=== PATIENT | female | born 1945 | race Caucasian/White ===

== ENCOUNTER 2018-01-15 12:08 | Emergency (ER) | payer MEDICARE, OTHER ==
[2018-01-15] MEDS ORDERED: Lidocaine 2% EPI 1:200000 MPF*10-20 ML VIAL ONE (12:59)
--- NOTE | 2018-01-15 13:05 | RAD ---
HISTORY: Left knee pain, fall COMPARISONS: None VIEWS: 2, Frontal and lateral views of the left knee FINDINGS: BONE DENSITY: Normal. BONES: There is no displaced fracture. JOINTS: There is no arthropathy. There is no suprapatellar joint effusion or lipohemarthrosis. ALIGNMENT: There is no dislocation. SOFT TISSUES: There is soft tissue irregularity consistent with the history of laceration. OTHER FINDINGS: None. IMPRESSION: NO ACUTE OSSEOUS INJURY. IF SYMPTOMS PERSIST, RECOMMEND REPEAT IMAGING.
[2018-01-15] MEDS ORDERED: Acetaminophen TAB* 325 MG ONE (13:06)
[2018-01-15] MEDS ORDERED: Acetaminophen TAB* 325 MG PO ONE (13:08)
[2018-01-15] MEDS ORDERED: Lidocaine 2% EPI 1:200000 MPF*10-20 ML VIAL INJ ONE (13:08)
[2018-01-15 16:15] VITALS: BP 126/74
--- NOTE | 2018-01-16 08:26 | ED ---
Laceration/Wound HPI - HPI Summary HPI Summary: Patient is a 72-year-old female presenting to the ED with a large laceration to the left knee. She states she fell on a cement step walking upstairs. Denies any pain to the knee. She takes Xarelto daily. She denies hitting her head and denies LOC. She denies any pain, including back pain, headache. Denies any dizziness. The fall was mechanical. She is at her baseline and family is at bedside confirming such. Bleeding is not well controlled on arrival and family states during the drive here she soaked through 3 towels. - History of Current Complaint Stated Complaint: LT KNEE LAC Time Seen by Provider: 01/15/18 12:17 Hx Obtained From: Patient Mechanism of Injury: Sharp/Blunt Trauma Onset/Duration: Sudden Onset Aggravating: Movement Alleviating: Compression Timing: Constant Onset Severity: Mild Current Severity: Mild Pain Intensity: 0 Pain Scale Used: 0-10 Numeric Related Hx: Anticoagulat Use - Allergy/Home Medications Allergies/Adverse Reactions: Allergies Allergy/AdvReac Type Severity Reaction Status Date / Time Sulfa (Sulfonamide Allergy Hives/Diff. Verified 01/15/18 12:24 Antibiotics) Breathing/I tching contrast dye Allergy Hives/Diff. Uncoded 01/15/18 12:24 Breathing/I tching Home Medications: Home Medications Cholecalciferol TAB* [Vitamin D TAB*] 1,000 unit PO DAILY 01/15/18 [History Confirmed 01/15/18] Escitalopram (NF) [Lexapro 20 mg (NF)] 20 mg PO DAILY 01/15/18 [History Confirmed 01/15/18] Nitroglycerin TAB 0.4 MG* 0.4 mg SL Q5M PRN 01/15/18 [History Confirmed 01/15/18 ] Rivaroxaban TAB(*) [Xarelto 10 mg (*)] 20 mg PO DAILY 01/15/18 [History Confirmed 01/15/18] Rosuvastatin (NF) [Crestor (NF)] 20 mg PO QPM 01/15/18 [History Confirmed ] Sotalol TAB* [Betapace 80 MG TAB*] 80 mg PO BID 01/15/18 [History Confirmed ] Spironolactone/HCTZ 25-25 MG* [Aldactazide 25-25*] 1 tab PO DAILY 01/15/18 [ History Confirmed 01/15/18] PMH/Surg Hx/FS Hx/Imm Hx Previously Healthy: Yes - Immunization History Hx Pertussis Vaccination: No Immunizations Up to Date: Unable to Obtain/Confirm Infectious Disease History: No Infectious Disease History: Denies: Traveled Outside the [place] in Last 30 Days - Social History Occupation: Unemployed Lives: With Family Alcohol Use: Rare Hx Substance Use: No Substance Use Type: Reports: None Smoking Status (MU): Former Smoker Review of Systems Constitutional: Negative Negative: Fever, Chills, Fatigue Negative: Epistaxis, Dental Pain Negative: Palpitations, Chest Pain Negative: Shortness Of Breath, Cough Genitourinary: Negative Positive: no symptoms reported, see HPI Negative: Arthralgia, Myalgia Positive: Other - 9cm laceration Neurological: Negative All Other Systems Reviewed And Are Negative: Yes Physical Exam Triage Information Reviewed: Yes Vital Signs On Initial Exam: Initial Vitals Pulse BP Pulse Ox 68 177/69 97 01/15/18 12:08 01/15/18 12:08 01/15/18 12:08 Vital Signs Reviewed: Yes Appearance: Positive: Well-Appearing, Well-Nourished Skin: Positive: Warm, Skin Color Reflects Adequate Perfusion Head/Face: Positive: Normal Head/Face Inspection Eyes: Positive: EOMI, SHAYY Neck: Positive: Supple, No Lymphadenopathy Respiratory/Lung Sounds: Positive: Clear to Auscultation, Breath Sounds Present Cardiovascular: Positive: RRR. Negative: Leg Edema Left, Leg Edema Right Musculoskeletal: Positive: Normal, Strength/ROM Intact, Other - no pain with flexion and extension of the L knee Neurological: Positive: Sensory/Motor Intact, Alert, Oriented to Person Place, Time, CN Intact II-III, Speech Normal Psychiatric: Positive: Normal, Affect/Mood Appropriate AVPU Assessment: Alert Procedures - Laceration/Wound Repair 1 Location: lower extremity Description: Irregular Anesthesia: Local, 1.0%, Epi Betadine Prep?: No Irrigated w/ Saline (ccs): 120 Laceration/Wound Explored: clean Debridement: minimal Suture Type: Prolene Number of Sutures: 17 Layer Closure?: No Sterile Dressing Applied?: No Diagnostics - Vital Signs Vital Signs Temp Pulse Resp BP Pulse Ox 01/15/18 16:13 98.1 F 74 14 126/74 99 01/15/18 16:00 74 17 99 01/15/18 15:38 65 15 166/68 100 01/15/18 15:07 67 21 133/73 99 01/15/18 15:00 67 17 99 01/15/18 14:38 71 152/70 95 01/15/18 14:07 73 124/70 100 01/15/18 14:00 73 100 01/15/18 13:37 72 118/79 99 01/15/18 13:08 71 142/61 100 01/15/18 13:00 72 100 01/15/18 12:38 70 148/73 97 01/15/18 12:30 70 98 01/15/18 12:28 70 175/72 96 01/15/18 12:19 98.1 F 69 16 180/76 97 01/15/18 12:08 68 177/69 97 - Laboratory Lab Statement: Any lab studies that have been ordered have been reviewed, and results considered in the medical decision making process. Laceration Repair Course/Dx - Course Course Of Treatment: During the course of treatment, bleeding was profuse from the knee due to Xarelto. Laceration is irregular, 9cm in length, .4cm depth and 2cm at widest area. Time out obtained. Therefore male lidocaine with epi used as local anesthetic with good effect. 17 3-0 Prolene sutures placed. The laceration continues to bleed. Applied Surgicel, abdominal pad and Coban wrapped in approximately 20 minutes later the area continues to bleed. One [id number] stitch placed over area of bleeding. Surgicel and abdominal pad and Coban again applied. After 20 minutes the area has not seeped through. Upon discharge patient arose to ambulate and began to syncopized. She was placed back on the stretcher and 1L fluids given. Again the bandage was rechecked and bleeding remains although much less. Surgicel and abdominal pad applied with Coban wrap and Enrrique bandage. After 45 minutes the bandage remains without soak through. Patient was helped to her feet and ambulated well with knee immobilizer. Knee immobilizer placed to help prevent flexion of the knee potentially breaking the sutures. Patient is given abdominal pads and Coban wraps prior to discharge and given strict return precautions to return if bleeding remains. Family states they are comfortable with taking care of the patient at home and changing the bandages at needed. Suture removal in 10-14 days. Patient was placed on Keflex due to depth of the laceration as well as potential contamination and proximity to joint. - Differential Dx Differental Diagnoses: Cellulitis, Foreign Body, Tendon Laceration - Clinical Impression Provider Diagnoses: Laceration Discharge - Sign-Out/Discharge Documenting (check all that apply): Discharge/Admit/Transfer - Discharge Plan Condition: Stable Disposition: HOME Prescriptions: Cephalexin CAP* [Keflex CAP*] 500 mg PO QID #20 cap MDD 4 Patient Education Materials: Laceration (ED) Referrals: No Primary Care Phys,NOPCP [Primary Care Provider] - Additional Instructions: Occlusive gauze dressing Telfa dressing Wrap with enrrique bandage unless actively bleeding If actively bleeding: use abdominal pad and coban wrap Keep covered x 3 days Shower as normal Do not bend the knee to prevent the breaking of the sutures Keep enrrique bandage applied until suture removal to assure you do not bend the knee too much Suture removal in 10-14 days Do not soak in water Keflex four times daily x 5 days - Billing Disposition and Condition Condition: STABLE Disposition: HOME
== END 2018-01-15 16:13 | disposition home or self-care (01) ==
LOC: ED 12:08
DX: S81.012A Laceration without foreign body, left knee, initial encounter (principal); W10.9XXA Fall (on) (from) unspecified stairs and steps, initial encounter; Y92.9 Unspecified place or not applicable; Z87.891 Personal history of nicotine dependence
CPT/HCPCS: 12004; 93005; 99283; A9270-GY